=== PATIENT | female | born 1955 | race Caucasian/White ===

== ENCOUNTER 2017-01-17 14:44 | Inpatient (IN) | payer BC ==
[2017-01-17 20:19] LABS: RED BLOOD COUNT 4.44 M/UL (4.00-5.10); WHITE BLOOD COUNT 12.1 K/UL (4.5-11.0)
[2017-01-17 20:34] LABS: BUN/CREATININE RATIO 33 (0-10)
[2017-01-17] MEDS ORDERED: LISINOPRIL10 MG PO (21:39)
[2017-01-17] MEDS ORDERED: ASPIR 8181 MG PO (21:40)
[2017-01-17] MEDS ORDERED: LEVOTHYROXINE112 MCG PO (21:41)
[2017-01-19] MEDS ORDERED: PERCOCET 5-3251 EACH PO (12:36)
[2017-01-19] MEDS ORDERED: ASPIR-LOW81 MG PO (12:38)
[2017-01-19] MEDS ORDERED: ZOFRAN4 MG PO (12:45)
== END 2017-01-19 14:48 | disposition home or self-care (01) | DRG 494 ==
LOC: ER1 14:44 → M/S 20:47 → ZEROF 20:47 → M/S 22:56
PROVIDERS: Orthopaedic Surgery; Physician Assistant Medical; ADMIT Internal Medicine
PROC: 0SBG0ZZ Excision of Left Ankle Joint, Open Approach (ICD-10-PCS; principal; 2017-01-18 12:00)
PROC: 0QSK04Z Reposition Left Fibula with Internal Fixation Device, Open Approach (ICD-10-PCS; principal; 2017-01-18 12:00)
PROC: BQ1H1ZZ Fluoroscopy of Left Ankle using Low Osmolar Contrast (ICD-10-PCS; principal; 2017-01-18 12:00)
DX: S82.842A Displaced bimalleolar fracture of left lower leg, initial encounter for closed fracture (principal); S92.142A Displaced dome fracture of left talus, initial encounter for closed fracture; W01.0XXA Fall on same level from slipping, tripping and stumbling without subsequent striking against object, initial encounter; Y93.02 Activity, running; Y92.096 Garden or yard of other non-institutional residence as the place of occurrence of the external cause; M19.90 Unspecified osteoarthritis, unspecified site; I10 Essential (primary) hypertension; E03.9 Hypothyroidism, unspecified; Z79.82 Long term (current) use of aspirin; Z79.899 Other long term (current) drug therapy; Z83.3 Family history of diabetes mellitus; Z80.1 Family history of malignant neoplasm of trachea, bronchus and lung; Z83.1 Family history of other infectious and parasitic diseases; Z82.49 Family history of ischemic heart disease and other diseases of the circulatory system
CPT/HCPCS: 36415; 71010; 73564; 73590; 73610; 73630; 76000; 80053; 85025; 85610; 85730; 93005; 96374; 96376; 97110; 97116; 99284; C1713; J0171; J0690; J1885; J2250; J2270; J2405; J7030; J7120

== ENCOUNTER → 2022-06-30 | Outpatient (CLI) | payer OTHER ==
[~2022-06-30] MED LIST: ASPIR 8181 MG PO; ASPIR-LOW81 MG PO; LEVOTHYROXINE112 MCG PO; LISINOPRIL10 MG PO; PERCOCET 5-3251 EACH PO; ZOFRAN4 MG PO
== END ==
LOC: RAD 11:33
DX: Z11.1 Encounter for screening for respiratory tuberculosis (principal)
CPT/HCPCS: 71046